=== PATIENT | female | born 1965 | race Caucasian/White ===

== ENCOUNTER → 2023-06-05 | Outpatient (REF) | payer BC ==
[~2023-06-05] MED LIST: AMLO1TAB24 PO; ERGO500029 PO
[2023-06-05 19:12] LABS: APPEARANCE, URINE CLEAR (CLEAR); BACTERIA, URINE AUTO NEGATIVE (NEGATIVE); BILIRUBIN, URINE AUTO NEGATIVE (NEGATIVE); BLOOD, URINE BLOOD NEGATIVE (NEGATIVE); COLOR, URINE STRAW (YELLOW); GLUCOSE, URINE (UA) AUTO NEGATIVE (NEGATIVE); KETONE, URINE AUTO NEGATIVE (NEGATIVE); LEUKOCYTE ESTERASE, URINE AUTO NEGATIVE (NEGATIVE); NITRITE, URINE AUTO NEGATIVE (NEGATIVE); PROTEIN, URINE AUTO NEGATIVE (NEGATIVE); RBC, URINE AUTO 0 /HPF (0-3); SPECIFIC GRAVITY URINE AUTO 1.004 (1.002-1.035); SQUAMOUS EPITHELIAL CELL UR AU 0 /HPF (0-6); UROBILINOGEN, URINE AUTO 0.2 mg/dL (0.0-2.0); WBC, URINE AUTO 0 /HPF (0-3)
== END ==
LOC: M SMT 17:14
PROVIDERS: ATTEND Urology
DX: R39.198 Other difficulties with micturition (principal)

== ENCOUNTER → 2023-07-03 | Outpatient (REF) | payer BC ==
[~2023-07-03] MED LIST changes: +MYRB50TA PO
== END ==
LOC: M LABSMT 11:39
PROVIDERS: ATTEND Urology
DX: R39.15 Urgency of urination (principal)

== ENCOUNTER 2023-07-09 06:21 | Day surgery (SDC) | payer BC ==
[~2023-07-09] VITALS: Ht 165.1 cm; Wt 77.2 kg
[2023-07-09] MEDS ORDERED: MIDAZOLAM INJ 2MG/2ML VIAL As Ordered ONE (07:18)
[2023-07-09] MEDS ORDERED: fentaNYL 100 MCG/2 ML INJECTION As Ordered ONE (07:18)
[2023-07-09] MEDS ORDERED: LIDOCAINE 2% 100MG/5ML SDV (FOR ANES.) As Ordered ONE (07:18)
[2023-07-09] MEDS ORDERED: propofoL 200 MG/20 ML VIAL As Ordered ONE ×2 (07:18→08:34)
[2023-07-09] MEDS ORDERED: ceFAZolin SOD 2 GM in IV 1 EA IV ONE (07:30)
[2023-07-09] MEDS ORDERED: LR 1,000 ML IV SCH (07:35)
[2023-07-09] MEDS ORDERED: ONDANSETRON 4MG 2ML VIAL As Ordered ONE (08:13)
[2023-07-09] MEDS ORDERED: HYDR-3713 PO (08:47)
[2023-07-09 09:20] VITALS: BP 115/72; TEMP 98.1; O2SAT 99
== END 2023-07-09 09:28 | disposition home or self-care (01) ==
LOC: M SDC 06:21
PROVIDERS: ATTEND Urology
DX: N20.0 Calculus of kidney (principal); I10 Essential (primary) hypertension; K57.92 Diverticulitis of intestine, part unspecified, without perforation or abscess without bleeding; K74.69 Other cirrhosis of liver; Z79.899 Other long term (current) drug therapy
CPT/HCPCS: 50590; 74018; 93005; J0690; J2250; J2405; J3010

== ENCOUNTER → 2024-06-27 | Outpatient (CLI) | payer BC ==
[~2024-06-27] MED LIST changes: +HYDR-3713 PO
== END ==
LOC: M PLAIMG 11:34
PROVIDERS: ATTEND Urology
DX: N20.0 Calculus of kidney (principal)

== ENCOUNTER → 2025-07-10 | Outpatient (CLI) | payer BC | LOC: M PLAIMG 11:26 | PROVIDERS: ATTEND Urology | DX: N20.0 Calculus of kidney (principal) ==